=== PATIENT | male | born 1990 | race Hispanic/Latino ===

== ENCOUNTER 2021-02-22 01:08 | Emergency (ER) | payer OTHER ==
[2021-02-22] MEDS ORDERED: IBUPROFEN 600 MG TABLET ONE (01:22)
== END 2021-02-22 02:51 | disposition home or self-care (01) ==
LOC: EDH 01:08
DX: S93.492A Sprain of other ligament of left ankle, initial encounter (principal); M25.562 Pain in left knee; J45.909 Unspecified asthma, uncomplicated; Z98.52 Vasectomy status; X58.XXXA Exposure to other specified factors, initial encounter; Y93.89 Activity, other specified; Y92.89 Other specified places as the place of occurrence of the external cause; Y99.0 Civilian activity done for income or pay
CPT/HCPCS: 73562; 73610